=== PATIENT | female | born 1955 | race Caucasian/White ===

== ENCOUNTER 2018-02-21 19:04 | Emergency (ER) | payer OTHER, BC ==
[~2018-02-21] VITALS: Ht 162.6 cm; Wt 60.0 kg
[~2018-02-21 19:04] MED LIST: CLEOCIN300 MG PO
[2018-02-21 19:07] VITALS: BP 163/113
== END 2018-02-21 22:10 | disposition left against medical advice (07) ==
LOC: EXP 19:04 → EME 19:04 → EXP 22:10
DX: M54.2 Cervicalgia (principal); V43.52XA Car driver injured in collision with other type car in traffic accident, initial encounter; Y92.410 Unspecified street and highway as the place of occurrence of the external cause
CPT/HCPCS: 99281; 99283

== ENCOUNTER 2018-02-22 08:28 | Emergency (ER) | payer OTHER, BC ==
[~2018-02-22] VITALS: Ht 162.6 cm; Wt 60.4 kg
[2018-02-22 10:16] VITALS: BP 149/82
== END 2018-02-22 10:17 | disposition home or self-care (01) ==
LOC: EME 08:28
DX: S16.1XXA Strain of muscle, fascia and tendon at neck level, initial encounter (principal); V49.40XA Driver injured in collision with unspecified motor vehicles in traffic accident, initial encounter; Y92.410 Unspecified street and highway as the place of occurrence of the external cause
CPT/HCPCS: 72125